=== PATIENT | male | born 1965 | race Caucasian/White ===

== ENCOUNTER 2021-01-23 13:11 | Outpatient (CLI) | payer OTHER, SELFPAY ==
--- NOTE | 2021-01-23 13:19 | XRR_ITS ---
PROCEDURE INFORMATION: Exam: XR Chest Exam date and time: 01/23/2021 1:19 PM Age: 55 years old Clinical indication: Shortness of breath and wheezing. Cough for a couple weeks. TECHNIQUE: Imaging protocol: XR of the chest. Views: 2 views. COMPARISON: No relevant prior studies available. FINDINGS: Lungs: Pulmonary nodule in the right upper chest measuring 5.6 mm. Small nodule in the mid to lower right chest measuring 4.2 mm. Small nodule in the left chest measuring 3.4 mm. There is mild peribronchial wall thickening. The lungs are hyperinflated. No pulmonary consolidation. Pleural spaces: No pleural effusion.. No pneumothorax. Heart/Mediastinum: No gross evidence of pneumomediastinum. Bones/joints: No gross fracture. Soft tissues: Probable prominent epicardial fat pad. XR/XR chest 2V* [id number] IMPRESSION: 1. Pulmonary nodules bilaterally. Recommend CT chest to better characterize. 2. There is mild peribronchial wall thickening; query viral infection/bronchitis, chronic bronchitis and/or asthma. 3. The lungs are hyperinflated; query COPD, asthma or other obstructive lung disease. Radiation Dose CTDIVOL = (mGy): DLP = (mGy-cm)
--- NOTE | 2021-01-23 13:19 | XRR_ITS ---
PROCEDURE INFORMATION: Exam: XR Left Wrist Exam date and time: 01/23/2021 1:19 PM Age: 55 years old Clinical indication: Left wrist pain. TECHNIQUE: Imaging protocol: XR Left wrist. Views: 1 or 2 views. COMPARISON: No relevant prior studies available. FINDINGS: Bones/joints: There is positive ulnar variance without definite ulnar abutment syndrome. Mild deformity of the distal radius likely reflects remote trauma. No fracture, dislocation or subluxation. No periosteal reaction or supsicious bone lesion. The scapholunate and lunotriquetral intervals are maintained. No chondrocalcinosis is seen. Soft tissues: No significant soft tissue swelling. XR/XR wrist LT 2V [id number] IMPRESSION: 1. No definite acute fracture is seen. 2. Probable old radial fracture with residual deformity. 3. Positive ulnar variance without evidence of ulnar abutment syndrome. Radiation Dose CTDIVOL = (mGy): DLP = (mGy-cm)
--- NOTE | 2021-01-23 13:19 | XRR_ITS ---
PROCEDURE INFORMATION: Exam: XR Sinus Exam date and time: 01/23/2021 1:19 PM Age: 55 years old Clinical indication: Chronic allergic rhinitis sinusitis TECHNIQUE: Imaging protocol: XR of the sinuses and paranasal structures. Views: Minimum of 3 views. COMPARISON: No relevant prior studies available. FINDINGS: The visualized paranasal sinuses and mastoid air cells are grossly clear. No gross facial fracture is identified. XR/XR sinus min 3V* [id number] IMPRESSION: The visualized paranasal sinuses and mastoid air cells are grossly clear. If there is continued clinical concern, consider sinus CT. Radiation Dose CTDIVOL = (mGy): DLP = (mGy-cm)
--- NOTE | 2021-01-23 13:19 | XRR_ITS ---
PROCEDURE INFORMATION: Exam: XR Right Wrist Exam date and time: 01/23/2021 1:19 PM Age: 55 years old Clinical indication: Right; Patient HX: Pain in lateral side of RT wrist TECHNIQUE: Imaging protocol: XR Right wrist. Views: 1 or 2 views. COMPARISON: No relevant prior studies available. FINDINGS: Bones/joints: The scapholunate and lunotriquetral intervals are maintained. No chondrocalcinosis is seen. There is positive ulnar variance. There is a possible cystic lesion in the lunate which may reflect ulnar abutment syndrome. No fracture, dislocation or subluxation. There is a peripherally sclerotic lucent lesion in the distal radius that measures 1.9 x 0.8 cm. Soft tissues: No significant soft tissue swelling. XR/XR wrist RT 2V [id number] IMPRESSION: 1. Peripherally sclerotic lucent lesion in the distal radius. Recommend MRI of the wrist with and without contrast to further assess. 2. There is positive ulnar variance. There is a possible cystic lesion in the lunate which may reflect ulnar abutment syndrome. 3. No acute fracture is seen. Radiation Dose CTDIVOL = (mGy): DLP = (mGy-cm)
== END 2021-01-23 13:12 | disposition home or self-care (01) ==
PROVIDERS: Visit Provider Nurse Practitioner Primary Care
DX: R06.02 Shortness of breath (principal); R06.2 Wheezing; J31.0 Chronic rhinitis; J32.9 Chronic sinusitis, unspecified; M25.532 Pain in left wrist; M25.531 Pain in right wrist; R91.8 Other nonspecific abnormal finding of lung field
CPT/HCPCS: 70220; 71046; 73100

== ENCOUNTER 2022-12-06 06:40 | Outpatient (CLI) | payer OTHER, SELFPAY ==
--- NOTE | 2022-12-06 | ECG_ITS ---
[facility] Test Date: 2022-12-06 Pat Name: Jean Huertas Department: Room: Gender: Male Training And Development Specialist: : 1965 Requested By: Destiny Guaman Order Number: [id number] Gross MD: Liss Orellana M.D. Interpretive Statements Name of study: Lexiscan sestamibi myocardial perfusion imaging Date of study: 12/06/22 Indication: Chest pain PROCEDURE: At the baseline, the blood pressure was 155/99 mm Hg with a heart rate of 69 bpm. The electrocardiogram showed sinus rhythm, normal axis. RV conduction delay. ??? The Lexiscan was infused over a period of 20 seconds. A total of 0.4 milligrams of Lexiscan was infused. The stress phase was continued for a total of 5 minutes. Heart rate at the end of the stress phase was 85 bpm with a blood pressure of 154/91 mm Hg. The EKG at the peak infusion revealed no sigificant ST-T wave changes. Study was terminated due to protocol completion. ??? Sestamibi was injected 20 seconds after the Lexiscan infusion. ??? Blood pressure at the end of the recovery phase was 161/92 mm Hg with a heart rate of 76 beats per minute. ??? CONCLUSION: 1. Normal EKG response to LexiScan infusion. 2. No LexiScan induced chest pain or cardiac arrhythmia. 3. Normal blood pressure and heart rate response. 4. Sestamibi/sestamibi perfusion scan pending; see separate report. Electronically Signed On 12-13-2022 21:38:47 CDT by Liss Orellana M.D. [id number]
--- NOTE | 2022-12-06 07:25 | USCV_ITS ---
Jean Huertas Age: 57 Gender: M : 1965 Exam Date: 12/06/2022 07:43 Ordering Phys: Destiny Guaman MD Technologist: Raúl Simmons Exam Location: [facility] [place] Indication: SOB BP: 134 / 85 HR: 74 Rhythm: Sinus Technical Quality: Adequate MEASUREMENTS (Male / Female) Normal Values 2D ECHO LVOT Diameter 2.1 cm LV Ejection Fraction MOD 2C 68.5 % LV Ejection Fraction 2C AL 70.7 % LA Diameter 4.0 cm LA Width 4.2 cm LA Height 4.9 cm RA Width 3.8 cm RA Height 4.9 cm Aorta at Sinotubular Diameter 2.8 cm IVC Diameter 1.8 cm M-MODE Aortic Annulus Diameter 3.5 cm LA Ao Ratio MM 1.2 MV E Point Septal Separation 0.5 cm DOPPLER AV Peak Velocity 157.0 cm/s LVOT Peak Velocity 111.0 cm/s AV Area Cont Eq vti 2.7 cm squared AV Area Cont Eq pk 2.4 cm squared MV Peak Velocity 107.0 cm/s MV Area PHT 4.2 cm squared Mitral E to A Ratio 1.3 MV E' Velocity 54.0 cm/s Mitral E to MV E' Ratio 8.6 Mitral E to LV E' Lateral Ratio 8.1 Mitral E to LV E' Septal Ratio 9.1 TR Peak Velocity 247.1 cm/s TR Peak Gradient 24.4 mmHg TR Mean Velocity 192.0 cm/s TR Mean Gradient 16.0 mmHg TR Velocity Time Integral 64.8 cm Right Atrial Pressure 3.0 mmHg Pulmonary Artery Systolic Pressu 27.4 mmHg PV Peak Velocity 80.0 cm/s RV Acceleration Time 0.1 s RV Ejection Time 0.3 s RV AcT/ET 0.4 FINDINGS Left Ventricle Normal LV function with EF of 65 to 70%. No pericardial effusion no pericardial effusion Right Ventricle Normal RV systolic function. Right Atrium Normal size Left Atrium Normal size Mitral Valve Mild mitral regurgitation without mitral stenosis Aortic Valve No significant aortic stenosis or aortic insufficiency Tricuspid Valve Mild tricuspid regurgitation Pulmonic Valve No significant regurgitation or stenosis Pericardium No pericardial effusion Aorta Normal IVC Normal CONCLUSIONS Normal LV function without significant valvular heart disease Aline Navarro MD (Electronically Signed) Final Date: 06 December 2022 08:57 S
[2022-12-06 08:33] VITALS: BMI 50.1
--- NOTE | 2022-12-06 08:33 | NMCV_ITS ---
NM reid perf SPECT r/s* [id number] Jean Huertas Age: 57 Gender: M : 1965 Exam Date: 12/06/2022 09:12 Ordering Phys: Destiny Guaman MD Technologist: SHARYN Hadley Exam Location: [facility] Indications: SHORTNESS OF BREATH STRESS TEST [facility] IMAGE PROTOCOL Rest/Stress 1 Lexiscan Day Radiopharmaceutical Dose (mCi) Administration Site Administered by Rest: Tc-99m 10.7 IV SHARYN Hadley Sestamibi Stress:Tc-99m 33.0 IV SHARYN Smart Sestamibi Rest: 06-Dec-2022 60 Discovery 630 Stress: 06-Dec-2022 30 Discovery 630 0.4mg Lexiscan. Images obtained in supine and prone position. SPECT RESULTS Technical Quality: Excellent Raw Data Analysis: Normal Image Corrections: No attenuation or motion correction applied Summed Stress Score: 7 Summed Rest Score: 5 Summed Difference Score: 2 PERFUSION FINDINGS Small sized perfusion abnormality of mild severity of mid to apical inferior and mid to apical inferolateral wall on rest images with reversibility in apical [place] on stress images. FUNCTIONAL RESULTS (calculated via Gated SPECT) Stress Image LV EF (%): 68 Stress EDV (mL):152 TID: 1.11 Stress ESV (mL):48 FUNCTIONAL FINDINGS: The left ventricle is normal in size. Transient Ischemia Dilatation of 1.1. There is normal left ventricular systolic function. The left ventricular ejection fraction is normal with a value of 68%. There is normal left ventricular wall thickening. IMPRESSIONS 1. Small sized partially reversible perfusion abnormality of mild severity of mid to apical inferior and mid to apical inferolateral [place]. This may be suggestive of old myocardial infarction in right coronary artery/ circumflex artery with mild joshua-infarct ischemia. 2. Overall left ventricular systolic function is normal without regional wall motion abnormalities, LVEF=68%. 3. EKG portion of the study will be reported separately. Liss Orellana MD (Electronically Signed) Final Date: 10 December 2022 15:17 S
[2022-12-06] MEDS: regadenoson 0.4 Mg/5 ml Syringe IVP (09:53)
[2022-12-06 10:07] VITALS: BP 133/74; PULSE 62
== END 2022-12-06 06:41 | disposition home or self-care (01) ==
LOC: RAD 06:41 → CDL 06:48
PROVIDERS: PCP Family Medicine; Visit Provider Family Medicine
DX: R07.9 Chest pain, unspecified (principal); I34.0 Nonrheumatic mitral (valve) insufficiency; I07.1 Rheumatic tricuspid insufficiency
CPT/HCPCS: 36415; 78452; 93017; 93306; 96374; A9500; J2785

== ENCOUNTER → 2023-02-06 14:38 | Outpatient (BNVA) | payer OTHER, SELFPAY | PROVIDERS: PCP Family Medicine; Referring Provider Family Medicine; Visit Provider Internal Medicine Cardiovascular Disease | DX: R94.39 Abnormal result of other cardiovascular function study (principal); I10 Essential (primary) hypertension; R06.02 Shortness of breath; M79.89 Other specified soft tissue disorders | CPT/HCPCS: 99204 ==

== ENCOUNTER 2023-02-14 09:55 | Outpatient (CLI) | payer OTHER, SELFPAY ==
[2023-02-14 10:35] LABS: Anion Gap 11.3 (5-19); Blood Urea Nitrogen 17 mg/dL (6-20); Calcium 9.8 mg/dL (8.5-10.5); Carbon Dioxide 34 mmol/L (22-29); Chloride 101 mmol/L (98-107); Glucose 99 mg/dL (65-115); NT Pro B Type Natriuretic Pept < 36 pg/mL (0-125); Osmolality Calculated 296 mOsm/kg (285-295); Potassium 4.3 mmol/L (3.5-5.1); Sodium 142 mmol/L (136-145)
== END 2023-02-14 09:56 | disposition home or self-care (01) ==
LOC: LAB 09:57
PROVIDERS: PCP Family Medicine; Visit Provider Internal Medicine Cardiovascular Disease
DX: I50.9 Heart failure, unspecified (principal)
CPT/HCPCS: 36415; 80048; 83880

== ENCOUNTER 2023-02-18 20:00 | Outpatient (CLI) | payer OTHER, SELFPAY | END 2023-02-18 20:01 | disposition home or self-care (01) | LOC: SLEEP 02-19 06:15 | PROVIDERS: PCP Family Medicine; Visit Provider Family Medicine | DX: G47.33 Obstructive sleep apnea (adult) (pediatric) (principal) | CPT/HCPCS: 95810 ==

== ENCOUNTER 2023-04-25 13:47 | Outpatient (CLI) | payer OTHER, SELFPAY ==
--- NOTE | 2023-04-25 16:00 | CTR_ITS ---
PROCEDURE INFORMATION: Exam: CT Chest Without Contrast; Diagnostic Exam date and time: 04/25/2023 1:56 PM Age: 58 years old Clinical indication: Abnormal findings; Lung mass or nodule; Not specified; Shortness of breath; Additional info: Follow up lung nodules TECHNIQUE: Imaging protocol: Diagnostic computed tomography of the chest without contrast. Radiation optimization: All CT scans at this facility use at least one of these dose optimization techniques: automated exposure control; mA and/or kV adjustment per patient size (includes targeted exams where dose is matched to clinical indication); or iterative reconstruction. COMPARISON: XR chest 2V* [id number] 11/15/2022 12:00 PM RADIATION DOSE METRICS: Total DLP (mGy-cm): 858.07 FINDINGS: Lungs: Unremarkable. No consolidation. No masses. Pleural spaces: Unremarkable. No pneumothorax. No pleural effusion. Heart: Unremarkable. No cardiomegaly. No pericardial effusion. Coronary arteries: Minimal coronary artery calcifications. Lymph nodes: Calcified Granuloma and centrally calcified lymph nodes are present. Vasculature: Unremarkable. No aortic aneurysm. Bones/joints: Unremarkable. No acute fracture. Soft tissues: Unremarkable. CT/CT chest wo con [id number] IMPRESSION: No acute findings.
== END 2023-04-25 13:48 | disposition home or self-care (01) ==
LOC: RAD 13:48
PROVIDERS: PCP Family Medicine; Visit Provider Internal Medicine Pulmonary Disease
DX: R91.8 Other nonspecific abnormal finding of lung field (principal); R06.02 Shortness of breath
CPT/HCPCS: 71250

== ENCOUNTER 2023-04-29 12:10 | Outpatient (CLI) | payer OTHER, SELFPAY ==
[2023-04-29 12:44] VITALS: PULSE 100; RESP 20; O2SAT 94
[2023-04-29] MEDS: albuterol 2.5 mg/3 mL Neb INHALATION (12:44)
[2023-04-29 12:48] VITALS: PULSE 102
== END 2023-04-29 12:11 | disposition home or self-care (01) ==
LOC: RT 12:10
PROVIDERS: PCP Family Medicine; Visit Provider Internal Medicine Pulmonary Disease
DX: R06.02 Shortness of breath (principal); R06.09 Other forms of dyspnea; R91.1 Solitary pulmonary nodule; E66.01 Morbid (severe) obesity due to excess calories; Z68.43 Body mass index [BMI] 50.0-59.9, adult; G47.33 Obstructive sleep apnea (adult) (pediatric)
CPT/HCPCS: 36415; 82785; 85025; 86003; 94060; 94618; 94726; 94729; 99204

== ENCOUNTER → 2023-05-08 14:24 | Outpatient (BNVA) | payer OTHER, SELFPAY | PROVIDERS: PCP Family Medicine; Visit Provider Internal Medicine Cardiovascular Disease | DX: R94.39 Abnormal result of other cardiovascular function study (principal); I10 Essential (primary) hypertension; R06.09 Other forms of dyspnea; G47.34 Idiopathic sleep related nonobstructive alveolar hypoventilation; G47.33 Obstructive sleep apnea (adult) (pediatric); E66.01 Morbid (severe) obesity due to excess calories; Z87.891 Personal history of nicotine dependence; Z68.43 Body mass index [BMI] 50.0-59.9, adult | CPT/HCPCS: 99214 ==